=== PATIENT | female | born 1940 | race Caucasian/White ===

== ENCOUNTER 2020-04-30 13:06 | Emergency (ER) | payer MEDICARE, BC ==
[~2020-04-30] VITALS: Ht 162.6 cm; Wt 59.1 kg
[~2020-04-30 13:06] MED LIST: ADVAIR HFA 230-12 GM INH; HYDROCHLOROTH12.5 M1 PO; LISINOPRIL5 MG PO; MUCINEX600 MG PO; OMNICEF300 MG PO; PREDNISONE10 MG PO; TAMIFLU75 MG PO; TESSALON PERLE100 MG PO; ZITHROMAX TRI-500 MG PO
[2020-04-30 13:29] VITALS: Ht 162.6 cm; Wt 59.1 kg
[2020-04-30 14:40] LABS: BILIRUBIN NEGATIVE (NEGATIVE); KETONE NEGATIVE (NEGATIVE); NITRITE NEGATIVE (NEGATIVE); UROBILINOGEN NORMAL mg/dL (< 2)
[2020-04-30 14:44] LABS: BASOPHILS 0.2 % (0-2); EOSINOPHILS 0.4 % (0-7); HEMATOCRIT 45.8 % (36.0-48.0); HEMOGLOBIN 15.2 g/dL (12-16); IMMATURE GRANULOCYTES 0.3 % (0-5); LYMPHOCYTES 15.5 % (15-50); MCH 30.5 pg (26.0-34.0); MCHC 33.2 g/dL (31.0-37.0); MCV 91.8 fL (80.0-100.0); MEAN PLATELET VOLUME 11.1 fL (7.4-10.4); MONOCYTES 4.2 % (2-11); NEUTROPHILS 79.4 % (40-80); RBC 4.99 10x6/uL (4.00-5.40); RDW 14.1 % (11.5-14.5); WBC 15.7 10x3/uL (4.8-10.8)
[2020-04-30 14:49] LABS: PLATELET COUNT 280 10x3/uL (130-400)
[2020-04-30 14:59] LABS: ANION GAP 15.8 mmol/L (8-16); CALCIUM 9.2 mg/dL (8.5-10.1); CARBON DIOXIDE 26.7 mmol/L (21.0-32.0); POTASSIUM - SERUM 3.5 mmol/L (3.5-5.1)
[2020-04-30 15:04] LABS: ALBUMIN 3.7 g/dL (3.4-5.0); BILIRUBIN - TOTAL 0.7 mg/dL (0.2-1.3); PROTEIN - SERUM 6.9 g/dL (6.4-8.2)
[2020-04-30 15:45] LABS: CKMB 1.3 U/L (0.0-3.6); CREATINE KINASE 93 UL (21-215); TROPONIN-I < 0.017 ng/mL (0.000-0.060)
[2020-04-30 17:14] VITALS: BP 147/53
== END 2020-04-30 17:14 | disposition home or self-care (01) ==
LOC: D.ER 13:06
PROVIDERS: Emergency Medicine
DX: R42 Dizziness and giddiness (principal); I10 Essential (primary) hypertension